=== PATIENT | male | born 1965 | race Caucasian/White ===

== ENCOUNTER 2018-06-20 09:02 | Day surgery (SDC) | payer BC, OTHER ==
[~2018-06-20 09:02] MED LIST: FENTANYL 100MCG/2ML SOL ONE; PROPOFOL 500 MG/50 ML EMU IV ONE
[2018-06-20 10:10] VITALS: PULSE 70; O2SAT 95
[2018-06-20 10:32] VITALS: BP 137/89; RESP 16; TEMP 09
== END 2018-06-20 10:30 | disposition home or self-care (01) | DRG 392 ==
LOC: SURG 09:02
PROVIDERS: ATTEND Surgery
DX: R13.10 Dysphagia, unspecified (principal)
CPT/HCPCS: J3010; J2704